=== PATIENT | female | born 1960 | race Caucasian/White ===

== ENCOUNTER 2020-07-31 10:00 | Outpatient (CLI) | payer OTHER, SELFPAY ==
--- NOTE | 2020-07-31 11:30 | NEURO_ITS ---
Impression: # Complains of right lower extremity numbness below the knee. # Normal nerve conduction study including F-waves. # Normal needle/EMG exam. # Clinical correlation recommended. Nerve Conduction Studies Anti Sensory Summary Table Stim Site NR Peak (ms) P-T Amp (?V) Site1 Site2 Delta-P (ms) Dist (cm) Yandel (m/s) Right Sup Fibular Anti Sensory (Ant Lat Mall) 14 cm 3.3 12.2 14 cm Ant Lat Mall 3.3 16.0 48 Right Sural Anti Sensory (Lat Mall) Calf 4.1 19.5 Calf Lat Mall 4.1 17.0 41 Motor Summary Table Stim Site NR Onset (ms) O-P Amp (mV) Site1 Site2 Delta-0 (ms) Dist (cm) Yandel (m/s) Right Peroneal Motor (Vastus Med) Ankle 4.2 3.6 Popit Ankle 7.1 37.0 52 Popit 11.3 3.8 Right Tibial Motor (Abd Mike Brev) Ankle 4.1 9.1 Knee Ankle 8.4 42.0 50 Knee 12.5 4.0 F Wave Studies NR F-Lat (ms) L-R F-Lat (ms) Right Peroneal (Mrkrs) (EDB) 46.68 Right Tibial (Mrkrs) (Abd Hallucis) 47.35 EMG Side Muscle Nerve Root Ins Act Fibs Amp Dur Recrt Comment Right AntTibialis Dp Br Fibular L4-5 Nml Nml Nml Nml Nml Right Gastroc Tibial S1-2 Nml Nml Nml Nml Nml Right Fibularis Long Sup Br Fibular L5-S1 Nml Nml Nml Nml Nml Right Flex Dig Long Tibial L5-S2 Nml Nml Nml Nml Nml Right Ext Dig Brev Dp Br Fibular L5, S1 Nml Nml Nml Nml Nml MTDD
== END 2020-07-31 10:01 | disposition home or self-care (01) ==
LOC: ANHNEURO 10:02
PROVIDERS: PCP Internal Medicine
DX: R20.2 Paresthesia of skin (principal)
CPT/HCPCS: 95886; 95908

== ENCOUNTER 2023-09-16 08:05 | Outpatient (CLI) | payer OTHER, SELFPAY ==
--- NOTE | ~2023-09-16 | MM_ITS ---
EXAMINATION: MM screening desiree BI w kwame HISTORY: Screening TECHNIQUE: Craniocaudal and mediolateral oblique 3-D tomosynthesis images were obtained and synthetic 2-D images were generated. CAD analysis was submitted and interpreted. COMPARISON: No prior mammogram is available for comparison at this institution. BREAST PARENCHYMAL COMPOSITION: The breasts are heterogeneously dense, which may obscure small masses . FINDINGS: There are nodular asymmetries in the upper outer quadrant of the left breast. No mammograph ic evidence for malignancy in the right breast. IMPRESSION: 1. Nodular asymmetries of the left breast. 2. Additional mammographic views and possible breast ultrasound are recommended. BI-RADS Category 0: Incomplete: Needs additional imaging evaluation. Reviewed, dictated and finalized at location A. RAL STERILIZATION TECHNICIAN IMPRESSION: 1. Nodular asymmetries of the left breast. 2. Additional mammographic views and possible breast ultrasound are recommended . BI-RADS Category 0: Incomplete: Needs additional imaging evaluation.
== END 2023-09-16 08:06 | disposition home or self-care (01) ==
LOC: ANHIMG 08:10
PROVIDERS: PCP Internal Medicine; Visit Provider Internal Medicine
DX: Z12.31 Encounter for screening mammogram for malignant neoplasm of breast (principal); R92.8 Other abnormal and inconclusive findings on diagnostic imaging of breast; M81.0 Age-related osteoporosis without current pathological fracture
CPT/HCPCS: 77063; 77067

== ENCOUNTER 2023-10-20 10:11 | Outpatient (CLI) | payer OTHER, SELFPAY ==
--- NOTE | ~2023-10-20 | MMUS_ITS ---
EXAMINATION: MM diagnostic desiree LT w kwame, US breast LT complete HISTORY: Nodular asymmetries of left breast reported on September 16, 2023 screening mammogram examinat ion TECHNIQUE: Additional 3-D tomosynthesis images of the left breast were performed and synthetic 2-D im ages were generated. CAD analysis was submitted and interpreted. High resolution complete left breast ultrasound examination including all 4 quadrants and subareolar area was performed. COMPARISON: September 16, 2023 and July 24, 2019 bilateral screening mammogram examinations FINDINGS: MAMMOGRAPHIC FINDINGS: No suspicious mammographic mass lesion, architectural distortion, malignant calcification, skin thick ening or retraction is detected. ULTRASOUND: Calcified microhematoma is noted in the subareolar area. No suspicious mass or shadowing of the left breast is detected. IMPRESSION: 1. No evidence of malignancy 2. Routine annual mammographic screening is recommended. BI-RADS Category 1: Negative Reviewed, dictated and finalized at location A. ING MACHINE OPERATOR ELECTRO GAS IMPRESSION: 1. No evidence of malignancy 2. Routine annual mammographic screening is recommended. BI-RADS Category 1: Negative
== END 2023-10-20 10:12 | disposition home or self-care (01) ==
PROVIDERS: PCP Internal Medicine; Visit Provider Internal Medicine
DX: R92.8 Other abnormal and inconclusive findings on diagnostic imaging of breast (principal)
CPT/HCPCS: 76641; 77061; 77065; G0279

== ENCOUNTER 2024-07-24 00:26 | Day surgery (SDC) | payer OTHER, SELFPAY ==
[2024-07-09 14:40] VITALS: BMI 24.8
[2024-07-24 07:49] VITALS: BP 150/79; PULSE 97; RESP 18; TEMP 36.1; O2SAT 100; BMI 24.5
[2024-07-24] MEDS: LACTATED RINGERS 1,000 ML 150 ML IV CONT (07:52)
--- NOTE | 2024-07-24 08:07 | WPDANESEPPF ---
Anes - Initial Pre Proc Eval Procedure: Operation Date: 07/24/24 08:30 Proposed Procedures p Esophagogastroduodenoscopy - Syed Rosario MD Date/Time: 07/24/24 08:07 Surgeon: Syed Rosario MD Pre Op Diagnosis: GERD Patient Data Age: 64 Gender: F Height: 1.6 m Weight: 62.9 kg Last Vital Signs Temp 36.1 C L 07/24/24 07:49 Pulse 97 07/24/24 07:49 Resp 18 07/24/24 07:49 BP 150/79 H 07/24/24 07:49 Pulse Ox 100 07/24/24 07:49 O2 Del Method Room Air 07/24/24 07:49 Allergies Allergy/AdvReac Type Severity Reaction Status Date / Time Penicillins Allergy Swelling Verified 07/24/24 07:47 Home Medications ?Medication ?Instructions ?Recorded ?Confirmed ?Type esomeprazole magnesium 40 mg 40 mg PO DAILY 07/09/24 07/24/24 History capsule,delayed release rosuvastatin 10 mg tablet 10 mg PO DAILY 07/09/24 07/24/24 History spironolactone 100 mg tablet 100 mg PO DAILY 07/09/24 07/24/24 History Patient hx anesthesia problems: none Family hx anesthesia problems: none Results Review: All pre-operative results and documents have been reviewed as part of the pre-operative evaluation. [facility] Social History Social History Living arrangements: with family Spiritual care concerns: No Anes - Eval Final PreProcedure Day of Procedure 07/24/24 08:07 Patient weight: normal Heart: regular rate and rhythm Lungs: clear to auscultation Airway: Mallampati scale class II Neurological: alert and oriented Last oral intake: >/= 8 hours ASA classification: II Emergent: no Anesthetic plan: proceed Anesthesia type and monitoring: general GIVS and standard monitoring Results Review: All pre-operative results and documents have been reviewed as part of the pre-operative evaluation. Informed Consent: The patient's anesthetic plan and its attendant risks and benefits were discussed with the patient/family/POA. Questions were solicited and answers provided to the satisfaction of the patient/family/POA.
--- NOTE | 2024-07-24 08:09 | PM.HPGS ---
History of Present Illness History of Present Illness Consent: Risks, benefits, and alternatives have been discussed and questions answered. Patient agrees to proceed with procedure. Chief complaint: GERD Narrative: Janki Harley is a 64 year old female here for first egd, h/o gerd on nexium daily for 10 years, also clearing her throat with breakthrough gerd at bedtime Review of Systems Review of Systems: All systems reviewed & are unremarkable except as noted in HPI and below PMFSH Past Medical History Medical History (Updated 07/24/24 @ 08:10 by Syed Rosario MD) Throat clearing GERD (gastroesophageal reflux disease) Social History Social History Living arrangements: with family Spiritual care concerns: No Meds Home Medications and Allergies Home Medications ?Medication ?Instructions ?Recorded ?Confirmed ?Type esomeprazole magnesium 40 mg 40 mg PO DAILY 07/09/24 07/24/24 History capsule,delayed release rosuvastatin 10 mg tablet 10 mg PO DAILY 07/09/24 07/24/24 History spironolactone 100 mg tablet 100 mg PO DAILY 07/09/24 07/24/24 History Allergies Allergy/AdvReac Type Severity Reaction Status Date / Time Penicillins Allergy Swelling Verified 07/24/24 07:47 Vital Signs Vital Signs - 24 hr 07/24/24 07:49 Temperature 97 F L Pulse Rate 97 Respiratory Rate 18 Blood Pressure 150/79 H Pulse Oximetry 100 Oxygen Delivery Room Air Exam Const: General: comfortable and no acute distress HENMT: Face/Nose/Sinus: Normal nares present Eyes: General: appearance normal, both eyes and all related structures Neck: Neck: no JVD Resp: Auscultation: clear to auscultation bilaterally Cardio: Rate: regular rate Rhythm: regular rhythm GI: Inspection: non-distended GI Palp: Yes Soft to palpation Skin: General skin exam: normal color Neuro: General: gait normal Speech: normal speech Extrem: General: normal to inspection Psych: Mental Status: mental status grossly normal Assessment and Plan Assessment and plan (1) GERD (gastroesophageal reflux disease): Code(s): K21.9 - Gastro-esophageal reflux disease without esophagitis Status: Acute Assessment and Plan: egd with bx on nexium (2) Throat clearing: Code(s): R09.89 - Other specified symptoms and signs involving the circulatory and respiratory systems Status: Acute
[2024-07-24 08:19] VITALS: BP 116/66; PULSE 87; RESP 17; O2SAT 100
[2024-07-24 08:29] VITALS: BP 101/63; PULSE 84; RESP 20; O2SAT 97
[2024-07-24 08:39] VITALS: BP 122/72; PULSE 78; RESP 18; O2SAT 99
== END 2024-07-24 08:52 | disposition home or self-care (01) ==
PROVIDERS: PCP Internal Medicine; Visit Provider Internal Medicine Gastroenterology
PROC: 0DJ08ZZ Inspection of Upper Intestinal Tract, Via Natural or Artificial Opening Endoscopic (ICD-10-PCS; CPT 43235; principal; 2024-07-24 08:30)
DX: K21.9 Gastro-esophageal reflux disease without esophagitis (principal); R09.89 Other specified symptoms and signs involving the circulatory and respiratory systems; K44.9 Diaphragmatic hernia without obstruction or gangrene
CPT/HCPCS: 43239; 88305; J2704; J7120

== ENCOUNTER 2024-08-22 10:48 | Outpatient (CLI) | payer OTHER, SELFPAY ==
--- NOTE | ~2024-08-22 | XR_ITS ---
XR chest 2V Ordering provider: Cyril Sellers, History: 64 years Female with . COUGH x 3 wks, l/g temp . Comparison: None. FINDINGS: MEDIASTINUM: The cardiac silhouette is not enlarged. LUNGS: No infiltrates, effusions or pneumothorax. OTHER: No free air under the diaphragm. Degenerative changes of the spine. IMPRESSION: No acute cardiopulmonary pathology. Reviewed, dictated and finalized at location A. ESS TIER
== END 2024-08-22 10:49 | disposition home or self-care (01) ==
PROVIDERS: PCP Internal Medicine; Visit Provider Internal Medicine
DX: R50.9 Fever, unspecified (principal)
CPT/HCPCS: 71046

== ENCOUNTER 2025-01-16 09:46 | Outpatient (CLI) | payer OTHER, SELFPAY ==
--- NOTE | ~2025-01-16 | MM_ITS ---
EXAMINATION: MM screening [facility] BI w kwame HISTORY: Screening TECHNIQUE: Craniocaudal and mediolateral oblique 3-D tomosynthesis images were obtained and synthetic 2-D images were generated. CAD analysis was submitted and interpreted. COMPARISON: 09/16/2023 and 07/24/2019 BREAST PARENCHYMAL COMPOSITION: The breasts are heterogeneously dense, which may obscure small masses . FINDINGS: There is no evidence of suspicious mass, calcification, or architectural distortion to sug gest malignancy in either breast. There has been no suspicious interval change. IMPRESSION: 1. No mammographic evidence of malignancy. 2. Recommend routine screening mammography in one year. BI-RADS Category 1: Negative Reviewed, dictated and finalized at location B.
--- NOTE | ~2025-01-16 | DEXA_ITS ---
Bone Density Report Name: FABRICIO MCCLELLAN Age: 65 Sex: Female Ethnicity: White Date of : 1960 Indication: postmenopausal; screening for osteoporosis; Referring Provider: MORGAN, EDITA Pierce Study: Bone densitometry was performed. Exam Date: January 16, 2025 Accession number: [id number] Bone Density: Region BMD T-score Z-score Classification AP Spine(L1-L4) 0.945 -0.9 0.7 Normal Femoral Neck (Left) 0.575 -2.5 -1.0 Osteoporosis Total Hip (Left) 0.862 -0.7 0.5 Normal Femoral Neck (Right) 0.601 -2.2 -0.8 Osteopenia Total Hip (Right) 0.851 -0.7 0.4 Normal Total Hip Mean 0.856 -0.7 0.5 Normal World Health Organization criteria for BMD impression classify patients as: Normal (T-score at or above -1.0), Osteopenia (T-score between -1.0 and -2.5), or Osteoporosis (T-score at or below -2.5). 10-year Fracture Risk: FRAX not reported because: Some T-score for Spine Total or Hip Total or Femoral Neck at or below -2.5 Clinical Information Provided by Patient: Has used the following medications: Vitamin D Patient maximum height was 63.0 Menopause Age: 52 Does not regularly consume dairy products Drinks caffeinated beverages Onset of menses at age 15 Number of children 2 Impression: The patient has osteoporosis, based on the Left Femoral Neck T-score. Discussion: INCREASED RISK OF FRACTURE. BONE DENSITY IS UNDESIRABLY LOW AT ONE OR MORE SKELETAL SITES, CONSISTENT WITH POSTMENOPAUSAL OSTEOPOROSIS. This patient's lowest T-score meets the World Health Organization's (WHO) criteria for osteoporosis at one or more sites (T-score -2.5 or below). In untreated patients, the risk of osteoporotic fracture increases approximately two-fold for each 1.0 SD decrease in T-score. Low bone density is not the only risk factor for fracture; also consider factors such as patient's age, frailty or poor health, risk of falling, risk of injury, previous osteoporotic fracture, family history of osteoporosis, cigarette smoking, low body weight, etc. Not everyone with low bone mineral density has osteoporosis; osteomalacia and other metabolic bone disorders should also be considered. Patients who have osteoporosis should be evaluated for specific diseases and conditions (secondary causes) that may cause or contribute to bone loss. The [place] [employer]ocrinologists (AACE) and National Osteoporosis Foundation (NOF) recommend pharmacologic intervention for all postmenopausal women whose T-score is in this range. The patient should follow a healthful lifestyle (good nutrition with adequate calcium and vitamin D, and appropriate weight-bearing exercise). Follow-Up: Consider a repeat BMD and Vertebral Fracture Assessment (VFA) exam in 2 years or sooner if medically necessary, to reassess this patient's status. Reported by: SUNSHINE on 01/16/2025 10:35:00 AM. Reviewed, dictated and finalized at location A.
--- OUTSIDE RECORDS SUMMARY | 2025-01-16 10:02 | XMS_ITS | Data Portability ---
Author Organization [facility], Main Office Address [address] [place] [address] Assessment No assessment recorded. Plan of Treatment Reminders Order Date Submit Date Provider Last Modified By Organization Details Last Modified Time Details Appointments None recorded. Lab lipid panel, serum 2024 025 [email or web address] [facility], [address] , [place], [address], 5 09:52:13 CMP, serum or plasma 2024 025 [email or web address] [facility], [address] [facility], [place], [address], 5 09:52:13 T4, free, serum 2024 025 [email or web address] [facility], [address] , [place], [address], 5 09:52:13 TSH, serum or plasma 2024 025 [email or web address] [facility], [address] [facility], [place], [address], 5 09:52:14 vitamin D, 25-hydroxy, total, serum 2022 023 [email or web address] [facility], [address] [place], [address], 3 13:22:38 lipid panel, serum 2022 023 [email or web address] [facility], [address] [place], [address], 3 13:22:38 CMP, serum or plasma 2022 023 [email or web address] [facility], [address] [place], [address], 3 13:22:38 magnesium, serum or plasma 2022 023 [email or web address] [facility], [address] [place], [address], 3 13:22:37 vitamin B12, serum 2022 023 [facility], [address] [place], [address], 3 13:22:38 CBC w/ auto diff 2022 023 [email or web address] [facility], [address] [place], [address], 3 13:22:38 Referral None recorded. Procedures None recorded. Surgeries None recorded. Imaging None recorded. Medication Orders Zithromax Z-Isiah 250 mg tablet [address]/Pharmacy #[id number], [address] [facility], [place], [address], 5 11:01:32 benzonatate 200 mg capsule [address]/Pharmacy #[id number], [address] , [place], [address], 5 11:01:35 Medrol (Isiah) 4 mg tablets in a dose pack [address]/Pharmacy #[id number], [address] , [place], [address], 5 11:01:41 trazodone 50 mg tablet 2023 024 [email or web address] [id number], [address], [place], [address], 11:59:21 Patient TargetsNo targets recorded. Patient Instructions Encounter Date Encounter Id Patient Instructions Last Modified By Organization Details Last Modified Time 03/03/2023 [id number] Follow-up for go od clinically stable. No interval complaints of any new problems. His knee need of a mammogram as well as bone density scan. Will check blood work consisting of CBC, CMP, lipid, magnesium level, B12 level and vitamin-D level. Continue on current Rx follow-up in one year Cologuard Bone density scan Mammogram Not available 03/03/2023 11:01:01 04/05/2024 [id number] Hyperlipidemia, GERD, insomnia. Plan to continue on current Rx will start on the rosuvastatin 10 mg once daily. Will give a trial of some trazodone 50 mg HS for sleep and see if there is any improvement. Continue current Rx recheck back in six months. Next Appointment: 6 Months Approximate Date: 10/02/2024 Portions of the record may have been created with voice recognition software. Occasional wrong-word or s ound-a-like substitutions may have occurred due to the inherent limitations of voice recognition software. Read the chart carefully and recognize, using context, where substitutions have occurred. [email or web address] Not available 04/05/2024 10:35:18 09/04/2024 [id number] Bronchitis, hyperlipidemia and GERD all clinically stable. We will give a trial of Z-Isiah, Tessalon Perles and a Medrol Dosepak. Have the patient report back in the next 2-3 days to see if there is any improvement. Will continue on current Rx already has a follow-up appointment in September. Keep Appointment: Louann 10 04 2024 09:50 AM Chapis Portions of the record may have been created with voice recognition software. Occasional wrong-word or s ound-a-like substitutions may have occurred due to the inherent limitations of voice recognition software. Read the chart carefully and recognize, using context, where substitutions have occurred. Created: Cyril Sellers M.D. 09.04.2024 11:11 AM [email or web address] Not available 09/04/2024 12:11:15 10/16/2024 [id number] Follow-up hyperlipidemia, GERD as well as menopausal osteoporosis. Will check a bone density scan, mammogram and Cologuard test. Also needs a lipid panel. He is being restarted back on rosuvastatin. Otherwise is clinically stable. Will follow-up six months Additional Orders - Directives - Recommendations 1. Screening mammogram 2. Bone density scan for postmenopausal osteoporosis 3. Cologuard 4. recheck her lipid panel in approximately six weeks is starting back on the rosuvastatin Portions of record are template driven. When necessary additional context will be provided. Additionally some portions have been created with voice recognition software. Occasional wrong-word or s ound-a-like substitutions may have occurred due to the inherent limitations of voice recognition software. Read the chart carefully and recognize, using context, where substitutions may have occurred. Created: Cyril Sellers M.D. 10.16.2024 10:15 AM [email or web address] Not available 10/16/2024 11:15:33 Reason for Referral None Reported. Results Created Date Observation Date Name Description Value Unit Range Abnormal Flag Note LastModifiedBy Organization Detail LastModifiedTime 03/02/20 24 03/02/2024 COLOG UARD cologuard result Cancel led - Order d not applic able Not Available [facility] (Cologuard Orders Only) [address], [place], [address], 03/02/2024 10:45:04 03/26/20 24 03/27/2024 LIPID PANEL , STAND EDI cholesterol, total 254 mg/dL <200 high Not Available [facility] [address] [place], [address], 03/27/2024 06:22:36 03/26/20 24 03/27/2024 LIPID PANEL , STAND EDI HDL cholesterol 64 mg/dL > or = 50 normal Not Available [facility] [address] [place], [address], 03/27/2024 06:22:36 03/26/20 24 03/27/2024 LIPID PANEL , STAND EDI triglyceride s 97 mg/dL <150 normal Not Available [facility] [address] [place], [address], 03/27/2024 06:22:36 03/26/20 24 03/27/2024 LIPID PANEL , STAND EDI LDL-choleste rol 168 mg/dL _(lo c) high Refer ence range : <100 Nahum able range <100 mg/dL for prima ry preve ntion ; <70 mg/dL for patie nts with CHD or diabe tic patie nts with > or = 2 CHD risk facto rs. LDL-C is now calcu lated using the Yulissa n-Hop kins calcu sarah n, which is a valid ated novel pinkyo ashanti ramirez accur acy than the Fried jose maria equat ion in the estim ation of LDL-C . Yulissa mckay SS et al. MARIBEL. 2013; 310(1 9): 2061- 2068 (http ://ed ucati on.FaceBuzz osmaniIMT ([employer]). [employer]f aq/FA Q164) Not Available [facility] [address] [place], [address], 03/27/2024 06:22:36 03/26/20 24 03/27/2024 LIPID PANEL , STAND EDI chol/HDLC ratio 4.0 (calc ) <5.0 normal Not Available [facility] [address] [place], [address], 03/27/2024 06:22:36 03/26/20 24 03/27/2024 LIPID PANEL , STAND EDI non HDL cholesterol 190 mg/dL _(lo c) <130 high For patie nts with diabe arely plus 1 major ASCVD risk facto r, treat ing to a non-H DL-C goal of <100 mg/dL (LDL- C of <70 mg/dL ) is consi dered a thera peuti c optio n. Not Available [facility] [address] [place], [address], 03/27/2024 06:22:36 03/26/20 24 03/27/2024 MAGNE SIUM magnesium 2.1 mg/dL 1.5-2. 5 normal Not Available [address], [address], 03/27/2024 06:22:37 03/26/20 24 03/27/2024 COMPR EHENS RUSSEL METAB OLIC PANEL glucose 88 mg/dL 65-99 normal Fasti ng refer ence inter josesito Not Available [address], [address], 03/27/2024 06:22:37 03/26/20 24 03/27/2024 COMPR EHENS RUSSEL METAB OLIC PANEL urea nitrogen (BUN) 14 mg/dL 7-25 normal Not Available [address], [address], 03/27/2024 06:22:37 03/26/20 24 03/27/2024 COMPR EHENS RUSSEL METAB OLIC PANEL creatinine 0.78 mg/dL 0.50-1 .05 normal Not Available [address], [address], 03/27/2024 06:22:37 03/26/20 24 03/27/2024 COMPR EHENS RUSSEL METAB OLIC PANEL eGFR 86 mL/mi n/1.7 3m2 > or = 60 normal Not Available [address], [address], 03/27/2024 06:22:37 03/26/20 24 03/27/2024 COMPR EHENS RUSSEL METAB OLIC PANEL BUN/creatini ne ratio SEE NOTE: (calc ) 6-22 Not Repor lauren: BUN and Creat inine are withi n refer ence range . Not Available [address], [address], 03/27/2024 06:22:37 03/26/20 24 03/27/2024 COMPR EHENS RUSSEL METAB OLIC PANEL sodium 139 mmol/ L 135-14 6 normal Not Available [address], [address], 03/27/2024 06:22:37 03/26/20 24 03/27/2024 COMPR EHENS RUSSEL METAB OLIC PANEL potassium 4.6 mmol/ L 3.5-5. 3 normal Not Available [address], [address], 03/27/2024 06:22:37 03/26/20 24 03/27/2024 COMPR EHENS RUSSEL METAB OLIC PANEL chloride 104 mmol/ L 98-110 normal Not Available [address], [address], 03/27/2024 06:22:37 03/26/20 24 03/27/2024 COMPR EHENS RUSSEL METAB OLIC PANEL carbon dioxide 28 mmol/ L 20-32 normal Not Available [address], [address], 03/27/2024 06:22:37 03/26/20 24 03/27/2024 COMPR EHENS RUSSEL METAB OLIC PANEL calcium 9.1 mg/dL 8.6-10 .4 normal Not Available [address], [address], 03/27/2024 06:22:37 03/26/20 24 03/27/2024 COMPR EHENS RUSSEL METAB OLIC PANEL protein, total 6.8 g/dL 6.1-8. 1 normal Not Available [address], [address], 03/27/2024 06:22:37 03/26/20 24 03/27/2024 COMPR EHENS RUSSEL METAB OLIC PANEL albumin 4.1 g/dL 3.6-5. 1 normal Not Available [address], [address], 03/27/2024 06:22:37 03/26/20 24 03/27/2024 COMPR EHENS RUSSEL METAB OLIC PANEL globulin 2.7 g/dL_ (calc ) 1.9-3. 7 normal Not Available [address], [address], 03/27/2024 06:22:37 03/26/20 24 03/27/2024 COMPR EHENS RUSSEL METAB OLIC PANEL albumin/glob ulin ratio 1.5 (calc ) 1.0-2. 5 normal Not Available [address], [address], 03/27/2024 06:22:37 03/26/20 24 03/27/2024 COMPR EHENS RUSSEL METAB OLIC PANEL bilirubin, total 0.3 mg/dL 0.2-1. 2 normal Not Available [address], [address], 03/27/2024 06:22:37 03/26/20 24 03/27/2024 COMPR EHENS RUSSEL METAB OLIC PANEL alkaline phosphatase 82 U/L 37-153 normal Not Available [address], [address], 03/27/2024 06:22:37 03/26/20 24 03/27/2024 COMPR EHENS RUSSEL METAB OLIC PANEL AST 26 U/L 10-35 normal Not Available [address], [address], 03/27/2024 06:22:37 03/26/20 24 03/27/2024 COMPR EHENS RUSSEL METAB OLIC PANEL ALT 37 U/L 6-29 high Not Available [address], [address], 03/27/2024 06:22:37 03/26/20 24 03/27/2024 CBC (INCL UDES DIFF/ PLT) white blood cell count 7.5 thous and/u L 3.8-10 .8 normal Not Available [address], [address], 03/27/2024 06:22:37 03/26/20 24 03/27/2024 CBC (INCL UDES DIFF/ PLT) red blood cell count 4.19 abril on/uL 3.80-5 .10 normal Not Available [address], [address], 03/27/2024 06:22:37 03/26/20 24 03/27/2024 CBC (INCL UDES DIFF/ PLT) hemoglobin 12.5 g/dL 11.7-1 5.5 normal Not Available [address], [address], 03/27/2024 06:22:37 03/26/20 24 03/27/2024 CBC (INCL UDES DIFF/ PLT) hematocrit 38.8 % 35.0-4 5.0 normal Not Available [address], [address], 03/27/2024 06:22:37 03/26/20 24 03/27/2024 CBC (INCL UDES DIFF/ PLT) MCV 92.6 fL 80.0-1 00.0 normal Not Available [address], [address], 03/27/2024 06:22:37 03/26/20 24 03/27/2024 CBC (INCL UDES DIFF/ PLT) MCH 29.8 pg 27.0-3 3.0 normal Not Available [facility] [address], [address], 03/27/2024 06:22:37 03/26/20 24 03/27/2024 CBC (INCL UDES DIFF/ PLT) MCHC 32.2 g/dL 32.0-3 6.0 normal Not Available [facility] [address] [place], [address], 03/27/2024 06:22:37 03/26/20 24 03/27/2024 CBC (INCL UDES DIFF/ PLT) RDW 12.5 % 11.0-1 5.0 normal Not Available [address], [address], 03/27/2024 06:22:37 03/26/20 24 03/27/2024 CBC (INCL UDES DIFF/ PLT) platelet count 288 thous and/u L 140-40 0 normal Not Available [address], [address], 03/27/2024 06:22:37 03/26/20 24 03/27/2024 CBC (INCL UDES DIFF/ PLT) MPV 11.0 fL 7.5-12 .5 normal Not Available [address], [address], 03/27/2024 06:22:37 03/26/20 24 03/27/2024 CBC (INCL UDES DIFF/ PLT) absolute neutrophils 5168 cells /uL 1500-7 800 normal Not Available [address], [address], 03/27/2024 06:22:37 03/26/20 24 03/27/2024 CBC (INCL UDES DIFF/ PLT) absolute lymphocytes 1253 cells /uL 850-39 00 normal Not Available [address], [address], 03/27/2024 06:22:37 03/26/20 24 03/27/2024 CBC (INCL UDES DIFF/ PLT) absolute monocytes 750 cells /uL 200-95 0 normal Not Available [address], [address], 03/27/2024 06:22:37 03/26/20 24 03/27/2024 CBC (INCL UDES DIFF/ PLT) absolute eosinophils 278 cells /uL 15-500 normal Not Available [address], [address], 03/27/2024 06:22:37 03/26/20 24 03/27/2024 CBC (INCL UDES DIFF/ PLT) absolute basophils 53 cells /uL 0-200 normal Not Available [address], [address], 03/27/2024 06:22:37 03/26/20 24 03/27/2024 CBC (INCL UDES DIFF/ PLT) neutrophils 68.9 % normal Not Available [address], [address], 03/27/2024 06:22:37 03/26/20 24 03/27/2024 CBC (INCL UDES DIFF/ PLT) lymphocytes 16.7 % normal Not Available [address], [address], 03/27/2024 06:22:37 03/26/20 24 03/27/2024 CBC (INCL UDES DIFF/ PLT) monocytes 10.0 % normal Not Available [address], [address], 03/27/2024 06:22:37 03/26/20 24 03/27/2024 CBC (INCL UDES DIFF/ PLT) eosinophils 3.7 % normal Not Available [address], [address], 03/27/2024 06:22:37 03/26/20 24 03/27/2024 CBC (INCL UDES DIFF/ PLT) basophils 0.7 % normal Not Available [address], [address], 03/27/2024 06:22:37 03/26/20 24 03/27/2024 VITAM IN B12 vitamin B12 457 pg/mL 200-11 00 normal Not Available [address] [place] [address] [place], [address], 03/27/2024 06:22:38 03/26/20 24 03/27/2024 T4, FREE T4, free 1.1 NG/dL 0.8-1. 8 normal Not Available [facility] [address] [address] [place], [address], 03/27/2024 06:22:38 03/26/20 24 03/27/2024 TSH TSH 1.65 mIU/L 0.40-4 .50 normal Not Available [facility] [address] [address] [place], [address], 03/27/2024 06:22:39 03/26/20 24 03/27/2024 VITAM IN D,25- OH,TO HETAL,I A vitamin D,25-oh,tota l,ia 33 NG/mL 30-100 normal Vitam in D Statu s 25-OH Vitam in D: Defic iency : <20 ng/mL Insuf ficie ncy: 20 - 29 ng/mL Optim al: > or = 30 ng/mL For 25-OH Vitam in D testi ng on patie nts on D2-rojas pplem entat ion and patie nts for whom quant itati on of D2 and D3 fract ions is requi red, the [facility](TM ) 25-OH VIT D, (D2,D 3), LC/MS /MS is recom suma d: order code 30861 (dinesh ents >2yrs ). See Note 1 Note 1 For addit ional infor feng muñoz refer to http: //karen grimes ics.c om/fa q/FAQ 199 (This link is being provi ded for infor ady deng/ manuel dean purpo ses only. ) Not Available [facility] [address] [place] [address] [place], [address], 03/27/2024 06:22:39 08/22/1908/25/2024 COMPR EHENS RUSSEL METAB OLIC PANEL glucose 91 mg/dL 65-99 normal Fasti ng refer ence inter josesito Not Available [address], [address], 08/25/2024 20:59:11 08/22/19 25 08/25/2024 COMPR EHENS RUSSEL METAB OLIC PANEL urea nitrogen (BUN) 13 mg/dL 7-25 normal Not Available [address], [address], 08/25/2024 20:59:11 08/22/19 25 08/25/2024 COMPR EHENS RUSSEL METAB OLIC PANEL creatinine 0.82 mg/dL 0.50-1 .05 normal Not Available [address], [address], 08/25/2024 20:59:11 08/22/19 25 08/25/2024 COMPR EHENS RUSSEL METAB OLIC PANEL eGFR 81 mL/mi n/1.7 3m2 > or = 60 normal Not Available [address], [address], 08/25/2024 20:59:11 08/22/19 25 08/25/2024 COMPR EHENS RUSSEL METAB OLIC PANEL BUN/creatini ne ratio SEE NOTE: (calc ) 6-22 Not Repor lauren: BUN and Creat inine are withi n refer ence range . Not Available [address], [address], 08/25/2024 20:59:11 08/22/19 25 08/25/2024 COMPR EHENS RUSSEL METAB OLIC PANEL sodium 137 mmol/ L 135-14 6 normal Not Available [address], [address], 08/25/2024 20:59:11 08/22/19 25 08/25/2024 COMPR EHENS RUSSEL METAB OLIC PANEL potassium 4.0 mmol/ L 3.5-5. 3 normal Not Available [address], [address], 08/25/2024 20:59:11 08/22/19 25 08/25/2024 COMPR EHENS RUSSEL METAB OLIC PANEL chloride 100 mmol/ L 98-110 normal Not Available [address], [address], 08/25/2024 20:59:11 08/22/19 25 08/25/2024 COMPR EHENS RUSSEL METAB OLIC PANEL carbon dioxide 28 mmol/ L 20-32 normal Not Available [address], [address], 08/25/2024 20:59:11 08/22/19 25 08/25/2024 COMPR EHENS RUSSEL METAB OLIC PANEL calcium 9.2 mg/dL 8.6-10 .4 normal Not Available [address], [address], 08/25/2024 20:59:11 08/22/19 25 08/25/2024 COMPR EHENS RUSSEL METAB OLIC PANEL protein, total 7.4 g/dL 6.1-8. 1 normal Not Available [address], [address], 08/25/2024 20:59:11 08/22/19 25 08/25/2024 COMPR EHENS RUSSEL METAB OLIC PANEL albumin 4.2 g/dL 3.6-5. 1 normal Not Available [address], [address], 08/25/2024 20:59:11 08/22/19 25 08/25/2024 COMPR EHENS RUSSEL METAB OLIC PANEL globulin 3.2 g/dL_ (calc ) 1.9-3. 7 normal Not Available [address], [address], 08/25/2024 20:59:11 08/22/19 25 08/25/2024 COMPR EHENS RUSSEL METAB OLIC PANEL albumin/glob ulin ratio 1.3 (calc ) 1.0-2. 5 normal Not Available [address], [address], 08/25/2024 20:59:11 08/22/19 25 08/25/2024 COMPR EHENS RUSSEL METAB OLIC PANEL bilirubin, total 0.3 mg/dL 0.2-1. 2 normal Not Available [address], [address], 08/25/2024 20:59:11 08/22/19 25 08/25/2024 COMPR EHENS RUSSEL METAB OLIC PANEL alkaline phosphatase 100 U/L 37-153 normal Not Available [address], [address], 08/25/2024 20:59:11 08/22/19 25 08/25/2024 COMPR EHENS RUSSEL METAB OLIC PANEL AST 20 U/L 10-35 normal Not Available [address], [address], 08/25/2024 20:59:11 08/22/19 25 08/25/2024 COMPR EHENS RUSSEL METAB OLIC PANEL ALT 24 U/L 6-29 normal Not Available [address], [address], 08/25/2024 20:59:11 08/22/19 25 08/25/2024 CBC (INCL UDES DIFF/ PLT) white blood cell count 10.8 thous and/u L 3.8-10 .8 normal Not Available [address], [address], 08/25/2024 20:59:14 08/22/19 25 08/25/2024 CBC (INCL UDES DIFF/ PLT) red blood cell count 4.12 abril on/uL 3.80-5 .10 normal Not Available [facility] [address], [address], 08/25/2024 20:59:14 08/22/19 25 08/25/2024 CBC (INCL UDES DIFF/ PLT) hemoglobin 13.1 g/dL 11.7-1 5.5 normal Not Available [facility] [address], [address], 08/25/2024 20:59:14 08/22/19 25 08/25/2024 CBC (INCL UDES DIFF/ PLT) hematocrit 38.4 % 35.0-4 5.0 normal Not Available [facility] [address], [address], 08/25/2024 20:59:14 08/22/19 25 08/25/2024 CBC (INCL UDES DIFF/ PLT) MCV 93.2 fL 80.0-1 00.0 normal Not Available [facility] [address], [address], 08/25/2024 20:59:14 08/22/19 25 08/25/2024 CBC (INCL UDES DIFF/ PLT) MCH 31.8 pg 27.0-3 3.0 normal Not Available [facility] [address], [address], 08/25/2024 20:59:14 08/22/19 25 08/25/2024 CBC (INCL UDES DIFF/ PLT) MCHC 34.1 g/dL 32.0-3 6.0 normal For adult s, a sligh t decre ase in the calcu lated MCHC value (in the range of 30 to 32 g/dL) is most likel y not clini meli signi franny t; ivette er, it shoul d be inter prete d with cauti on in corre latio n with other red cell jaquelin eters and the patie nt's clini lo condi tion. Not Available [facility] [address] [address], [place], [address], 08/25/2024 20:59:14 08/22/19 25 08/25/2024 CBC (INCL UDES DIFF/ PLT) RDW 11.8 % 11.0-1 5.0 normal Not Available [address], [address], 08/25/2024 20:59:14 08/22/19 25 08/25/2024 CBC (INCL UDES DIFF/ PLT) platelet count 348 thous and/u L 140-40 0 normal Not Available [facility] [address], [address], 08/25/2024 20:59:14 08/22/19 25 08/25/2024 CBC (INCL UDES DIFF/ PLT) MPV 10.7 fL 7.5-12 .5 normal Not Available [address], [address], 08/25/2024 20:59:14 08/22/19 25 08/25/2024 CBC (INCL UDES DIFF/ PLT) absolute neutrophils 8078 cells /uL 1500-7 800 high Not Available [address], [address], 08/25/2024 20:59:14 08/22/19 25 08/25/2024 CBC (INCL UDES DIFF/ PLT) absolute lymphocytes 1253 cells /uL 850-39 00 normal Not Available [facility] [address], [address], 08/25/2024 20:59:14 08/22/19 25 08/25/2024 CBC (INCL UDES DIFF/ PLT) absolute monocytes 1188 cells /uL 200-95 0 high Not Available [facility] [address], [address], 08/25/2024 20:59:14 08/22/19 25 08/25/2024 CBC (INCL UDES DIFF/ PLT) absolute eosinophils 227 cells /uL 15-500 normal Not Available [address], [address], 08/25/2024 20:59:14 08/22/19 25 08/25/2024 CBC (INCL UDES DIFF/ PLT) absolute basophils 54 cells /uL 0-200 normal Not Available [facility] [address], [address], 08/25/2024 20:59:14 08/22/19 25 08/25/2024 CBC (INCL UDES DIFF/ PLT) neutrophils 74.8 % normal Not Available [facility] [address], [address], 08/25/2024 20:59:14 08/22/19 25 08/25/2024 CBC (INCL UDES DIFF/ PLT) lymphocytes 11.6 % normal Not Available [facility] [address], [address], 08/25/2024 20:59:14 08/22/19 25 08/25/2024 CBC (INCL UDES DIFF/ PLT) monocytes 11.0 % normal Not Available [facility] [address], [address], 08/25/2024 20:59:14 08/22/19 25 08/25/2024 CBC (INCL UDES DIFF/ PLT) eosinophils 2.1 % normal Not Available [facility] [address], [address], 08/25/2024 20:59:14 08/22/19 25 08/25/2024 CBC (INCL UDES DIFF/ PLT) basophils 0.5 % normal Not Available [facility] [address], [address], 08/25/2024 20:59:14 08/22/19 25 08/25/2024 URINA LYSIS , COMPL ETE W/RFL CULTU RE (REFL ) color YELLOW yellow normal Not Available [address], [address], 08/25/2024 20:59:15 08/22/19 25 08/25/2024 URINA LYSIS , COMPL ETE W/RFL CULTU RE (REFL ) appearance CLEAR clear normal Not Available [address], [address], 08/25/2024 20:59:15 08/22/19 25 08/25/2024 URINA LYSIS , COMPL ETE W/RFL CULTU RE (REFL ) specific gravity 1.017 1.001- 1.035 normal Not Available [address], [address], 08/25/2024 20:59:15 08/22/19 25 08/25/2024 URINA LYSIS , COMPL ETE W/RFL CULTU RE (REFL ) pH 6.0 5.0-8. 0 normal Not Available [address], [address], 08/25/2024 20:59:15 08/22/19 25 08/25/2024 URINA LYSIS , COMPL ETE W/RFL CULTU RE (REFL ) glucose NEGATI VE negati ve normal Not Available [address], [address], 08/25/2024 20:59:15 08/22/19 25 08/25/2024 URINA LYSIS , COMPL ETE W/RFL CULTU RE (REFL ) bilirubin NEGATI VE negati ve normal Not Available [address], [address], 08/25/2024 20:59:15 08/22/19 25 08/25/2024 URINA LYSIS , COMPL ETE W/RFL CULTU RE (REFL ) ketones NEGATI VE negati ve normal Not Available [address], [address], 08/25/2024 20:59:15 08/22/19 25 08/25/2024 URINA LYSIS , COMPL ETE W/RFL CULTU RE (REFL ) occult blood TRACE negati ve abnormal Not Available [address], [address], 08/25/2024 20:59:15 08/22/19 25 08/25/2024 URINA LYSIS , COMPL ETE W/RFL CULTU RE (REFL ) protein NEGATI VE negati ve normal Not Available [address], [address], 08/25/2024 20:59:15 08/22/19 25 08/25/2024 URINA LYSIS , COMPL ETE W/RFL CULTU RE (REFL ) nitrite NEGATI VE negati ve normal Not Available [address], [id number], 08/25/2024 20:59:15 08/22/19 25 08/25/2024 URINA LYSIS , COMPL ETE W/RFL CULTU RE (REFL ) leukocyte esterase NEGATI VE negati ve normal Not Available [address], [address], 08/25/2024 20:59:15 08/22/19 25 08/25/2024 URINA LYSIS , COMPL ETE W/RFL CULTU RE (REFL ) WBC NONE SEEN /hpf < or = 5 normal Not Available [address], [address], 08/25/2024 20:59:15 08/22/19 25 08/25/2024 URINA LYSIS , COMPL ETE W/RFL CULTU RE (REFL ) RBC NONE SEEN /hpf < or = 2 normal Not Available [facility] [address], [id number], 08/25/2024 20:59:15 08/22/19 25 08/25/2024 URINA LYSIS , COMPL ETE W/RFL CULTU RE (REFL ) squamous epithelial cells NONE SEEN /hpf < or = 5 normal Not Available [address], [id number], 08/25/2024 20:59:15 08/22/19 25 08/25/2024 URINA LYSIS , COMPL ETE W/RFL CULTU RE (REFL ) bacteria NONE SEEN /hpf none seen normal Not Available [address], [address], 08/25/2024 20:59:15 08/22/19 25 08/25/2024 URINA LYSIS , COMPL ETE W/RFL CULTU RE (REFL ) hyaline cast NONE SEEN /lpf none seen normal Not Available [address], [id number], 08/25/2024 20:59:15 08/22/19 25 08/25/2024 URINA LYSIS , COMPL ETE W/RFL CULTU RE (REFL ) note This urine was heather zed for the prese nce of WBC, RBC, bacte lawanda, casts , and other forme d eleme nts. Only those eleme nts seen were repor lauren. Not Available [address], [address], 08/25/2024 20:59:15 08/22/19 25 08/25/2024 REFLE XIVE URINE CULTU RE reflexive urine culture NO CULTU RE INDIC ATED Not Available [address], [address], 08/25/2024 20:59:16 08/22/19 25 08/25/2024 PROCA LCITO TRACI procalcitoni n <0.10 NG/mL <0.10 Inter preta tion Guide lines Diagn osis of syste sal bacte rial infec tion/ sepsi s <0.50 ng/mL : Low risk for sepsi s: local bacte rial infec tion possi ble >=0.5 0 to <2.00 ng/mL : Sepsi s is possi ble; other condi tions possi ble >=2.0 0 to <10.0 0 ng/mL : Sepsi s likel y >10.0 0 ng/mL : Sever e bacte rial sepsi s or septi c shock proba ble Diagn osis of lower respi rator y tract infec tions : <0.10 ng/mL : Bacte rial infec tion very unlik ronda >=0.1 0 to <0.25 ng/mL : Bacte rial infec tion unlik ronda >=0.2 5 to <0.50 ng/mL : Bacte rial infec tion likel y >=0.5 0 ng/mL : Bacte rial infec tion very likel y Proca lcito traci level s shoul d be evalu ated in tyrone xt of all labor atory findi ngs and the total clini lo statu s of the patie nt. For addit ional infor feng muñoz e refer to http: //[facility] des mckay.que stdia gnost ics.c om/fa q/FAQ 46 (This link is being provi ded for infor ady nal/e ducat ional purpo ses only. ) Not Available [address] [address] [place], [address], 08/25/2024 20:59:17 10/30/19 25 10/29/2024 COLOG UARD cologuard result reportable NEGATI VE negati ve normal NEGAT RUSSEL TEST RESUL T. A negat russel Colog uard resul t indic ates a low likel ihood that a color ectal cance r (CRC) or advan marta adeno ma (octavia omato us polyp s with more advan marta pre-m align ant featu res) is prese nt. The chanc e that a perso n with a negat russel Colog uard test has a color ectal cance r is less than 1 in 1500 (nega tive predi ctive value >99.9 %) or has an advan marta adeno ma is less than 5.3% (nega tive predi ctive value 94.7% ). These data are based on a prosp ectiv e cross -sect ional study of 10,00 0 indiv idual s at [facility] risk for color ectal cance r who were scree tariq with both Colog uard and colon oscop y. (Pari Pierce et al, N Engl J Med 2014; 370(1 4):12 86-12 97) The angelina l value (refe rence range ) for this assay is negat russel. COLOG UARD RE-SC REENI NG RECOM MENDA TION: Perio dic color ectal cance r scree rito is an impor tant part of preve ntive healt hcare for asymp tomat ic indiv idual s at [place] risk for color ectal cance r. Follo wing a negat russel Colog uard resul t, the Ameri can Cance r Socie ty and U.S. Multi -Soci ety Task Force scree rito guide lines recom mend a Colog uard re-sc reeni ng inter josesito of 3 years . Refer ences : Ameri can Cance r Socie ty Guide line for Color ectal Cance r Scree rito: https ://dorothy w.can cer.o rg/ca ncer/ colon -rect al-ca ncer/ detec tion- diagn osis- stagi ng/ac s-rec ommen datio ns.ht ml.; Santos LANGFORD, Oh burrell CR, Basia ta JK, Color ectal Cance r Scree rito: Recom menda tions for Physi cians and Patie nts from the U.S. Multi -Soci ety Task Force on Color ectal Cance r Scree rito , Giovana escalanteog y 2017; 112:1 016-1 030. TEST DESCR IPTIO N: [place] site algor ithmi c heather sis of stool DNA-b iomar kers with hemog lobin immun oassa y. Quant itati ve value s of indiv idual bioma rkers are not repor table and are not assoc iated with indiv idual bioma rker resul t refer ence range s. Colog uard is inten ded for color ectal cance r scree rito of adult s of eithe r sex, 45 years or older , who are at [facility] for color ectal cance r (CRC) . Colog uard has been appro sonja for use by the U.S. FDA. The perfo rmanc e of Colog uard was estab lishe d in a cross secti onal study of [facility] adult s aged 50-84 . Colog uard perfo rmanc e in patie nts ages 45 to 49 years was estim ated by sub-g roup heather sis of near- age group s. Colon oscop ies perfo rmed for a posit russel resul t may find as the most clini meli signi fican t lesio n: color ectal cance r [4.0% ], advan marta adeno ma (incl uding sessi le chelo lauren polyp s great er than or equal to 1cm diame ter) [20%] or non- advan marta adeno ma [31%] ; or no color ectal neopl candis [45%] . These estim ates are deriv ed from a prosp ectiv e cross -sect ional scree rito study of 10,00 0 indiv idual s at [facility] risk for color ectal cance r who were scree tariq with both Colog uard and colon oscop y. (Pari Pierce et al, N Engl J Med 2014; 370(1 4):12 86-12 97.) Colog uard may produ ce a false negat russel or false posit russel resul t (no color ectal cance r or preca ncero us polyp prese nt at colon oscop y follo w up). A negat russel Colog uard test resul t does not guara ntee the absen ce of CRC or advan marta adeno ma (pre- cance r). The curre nt Colog uard scree rito inter josesito is every 3 years . (Amer ican Cance r Socie ty and U.S. Multi -Soci ety Task Force ). Colog uard perfo rmanc e data in a 10,00 0 patie nt pivot al study using colon oscop y as the refer ence metho d can be acces sed at the follo wing locat ion: www.e xactl abs.c om/re myrna . Addit ional descr iptio n of the Colog uard test proce ss, warni ngs and preca ution s can be found at www.c nasreen edi.c om. Not Available [facility] (Cologuard Orders Only) [address], [place], [address], 11/02/2024 12:31:56 09/16/19 24 09/16/2023 MAMMO , scree rito, digit al, bilat eral No observ ation record ed. [address] [facility], [place], [address], 09/16/2023 10:39:17 09/16/19 24 09/16/2023 MAMMO , scree rito, digit al, bilat eral No observ ation record ed. [address], [place], [address], 09/16/2023 14:09:01 09/22/19 24 09/16/2023 MAMMO , scree rito, digit al, bilat eral No observ ation record ed. [place] [id number] Not Available 2023 13:39:51 10/20/19 24 10/20/2023 MAMMO , scree rito, digit al, bilat eral No observ ation record ed. [address], [place], [address], 10/20/2023 15:37:09 10/21/19 24 10/20/2023 MAMMO , diagn ostic , digit al, unila teral No observ ation record ed. [address] [facility] [address], [place], [address], 10/21/2023 10:28:49 08/22/19 25 08/22/2024 XR, chest , 2 view No observ ation record ed. [email or web address] [facility] [address], [place], [address], 08/22/2024 14:30:50 Result Notes None recorded. Problems Name Problem SNOMED Code Status Onset Date Resolution Date Notes Provider Name and Address Organization Details Recorded Time Cellulitis 646990320 Active Not Available [facility] 3 17:10:30 Gastroesophag eal reflux disease 979774189 Active 2017 Not Available [facility] 3 17:10:30 Olecranon bursitis 454364239 Active Not Available [facility] 3 17:10:30 Vitamin D deficiency 45800959 Active 2022 Not Available [facility] 3 17:10:30 Hemorrhoids 87385611 Active 2022 Not Available [facility] 3 17:10:30 Mammography abnormal 463587145 Active 2023 ROXANNE [place], [place] - [facility] 4 15:52:04 Hypercholeste rolemia 50129804 Active 2023 Cyril Sellers MD [address], [place], [address] , [facility] 4 11:55:12 Insomnia 110951602 Active 2023 Cyril Sellers MD [address], [place], [address] , [facility] 4 10:34:25 Screening for malignant neoplasm of colon Active 2023 Elena hernandez, [place] - [facility] 4 11:35:02 Cough 26987126 Active 2024 Cyril Sellers MD [address], [place], [address] , [facility] - [facility] 5 10:49:53 Acute urinary tract infection 514695623 Active 2024 Rubina Cano CMA null, [facility] 5 11:11:32 Acute bronchitis 81543442 Active 2024 Cyril Sellers MD [address] [facility], [facility] [address], [place], [address] , [facility] [employer] [facility] 5 12:06:14 Menopausal osteoporosis 79738281 Active 2024 Cyril Sellers MD [address] [facility], [facility] [address], [place], [address] , [facility] [employer] [facility] 5 11:09:55 Senile osteoporosis 61344661 Active 2024 Elena Tucker hernandez, [facility] [employer] [facility] 5 11:21:45 Problem Notes None recorded. Medical Equipment None Reported. Allergies Allergen ID Allergen Name Allergen Category Reaction Reaction Severity Criticality Documentation Date Start Date Code Code System Note Provider Name and Address Organization Details Recorded Time 03634 Product containin g penicilli n (product) medicatio n Not available Not available Not available 10/13/2022 97519 8001 SNOMED Not Available [facility] 3 12:59:24 Medications Name Sig Start Date Stop Date Status Note LastModified by Organization Details LastModified Time hydrocodone 7.5 mg-ibuprofe n 200 mg tablet 06/01 completed Not Available Not Available Not Available doxycycline hyclate 100 mg capsule Take 1 capsule every day by oral route. 04/05 completed Not Available Not Available Not Available clindamycin HCl 300 mg capsule Take 1 capsule every 6 hours by oral route. 04/05 completed Not Available Not Available Not Available trazodone 50 mg tablet TAKE 1 TABLET BY MOUTH AT BEDTIME NEEDED 09/04 completed Not Available Not Available Not Available azithromyci n 250 mg tablet TAKE 2 TABLETS BY MOUTH TODAY, THEN TAKE 1 TABLET DAILY FOR 4 DAYS DIRECTED 10/16 completed Not Available Not Available Not Available benzonatate 200 mg capsule TAKE 1 CAPSULE BY MOUTH THREE TIMES A DAY 10/16 completed Not Available Not Available Not Available spironolact one 100 mg tablet TAKE 1 TABLET BY MOUTH EVERY DAY WITH BREAKFAST active Not Available Not Available No t Available sulfamethox azole 800 mg-trimetho prim 160 mg tablet 06/01 completed Not Available Not Available Not Available tramadol 50 mg tablet TAKE 1 TABLET 3 TIMES A DAY BY ORAL ROUTE NEEDED. active Not Available Not Available No t Available triamcinolo ne acetonide 0.1 % topical cream 06/01 completed Not Available Not Available Not Available erythromyci n 250 mg tablet 06/01 completed Not Available Not Available Not Available hydrocortis one 2.5 % topical cream with perineal applicator APPLY A THIN LAYER TO THE AFFECTED AREA(S) BY TOPICAL ROUTE 2-4 TIMESDAIL Y 04/05 completed Not Available Not Available Not Available clindamycin 1 % topical gel APPLY TWICE A DAY 06/01 completed Not Available Not Available Not Available Compazine 5 mg tablet Take 1 tablet 3 times a day by oral route for 4 days. 06/28 completed Not Available Not Available Not Available esomeprazol e magnesium 40 mg capsule,del ayed release TAKE 1 CAPSULE BY MOUTH EVERY DAY active Not Available Not Available No t Available Cheratussin AC 10 mg-100 mg/5 mL oral liquid Take 10 mL 3 times a day by oral route. 06/01 completed Not Available Not Available Not Available methylpredn isolone 4 mg tablets in a dose pack TAKE 6 TABLETS ON DAY 1 DIRECTED ON PACKAGE AND DECREASE BY 1 TAB EACH DAY FOR A TOTAL OF 6 DAYS 10/16 completed Not Available Not Available Not Available doxycycline hyclate 100 mg tablet Take 1 tablet every day by oral route. 04/05 completed Not Available Not Available Not Available rosuvastati n 10 mg tablet TAKE 1 TABLET BY MOUTH EVERY DAY 2024 active Not Available Not Available Not Avai lable Claritin 04/05 completed Not Available Not Available Not Available cholecalcif narendra (vitamin D3) 1,250 mcg (50,000 unit) capsule Take 1 capsule every week by oral route. 04/05 completed Not Available Not Available Not Available Vitals Date Recorded Body height Body mass index (BMI) Body weight Heart rate Body temperature Oxygen saturation Oxygen saturation in Arterial blood by Pulse oximetry Systolic blood pressure Diastolic blood pressure Provider Name and Address Organization Details Last Updated DateTime 5 160.02 cm 25.7 kg/m2 19042.8 9 g 117 /min 97 [degF] 94 % 94 % 118 mm[Hg] 70 mm[Hg] Ariane Alfredo [place] [employer] [facility] [employer] [facility] 5 11:58:55 Date Recorded Body height Body mass index (BMI) Body weight Heart rate Body temperature Oxygen saturation Oxygen saturation in Arterial blood by Pulse oximetry Systolic blood pressure Diastolic blood pressure Provider Name and Address Organization Details Last Updated DateTime 5 160.02 cm 26.2 kg/m2 28629.6 7 g 112 /min 97 [degF] 96 % 96 % 144 mm[Hg] 82 mm[Hg] Ariane Alfredo [employer] [facility] [employer] [facility] 5 11:01:20 Date Recorded Body weight Body temperature Heart rate Oxygen saturation Oxygen saturation in Arterial blood by Pulse oximetry Systolic blood pressure Diastolic blood pressure Provider Name and Address Organization Details Last Updated DateTime 3 57352.9 3 g 96.4 [degF] 92 /min 97 % 97 % 140 mm[Hg] 86 mm[Hg] Suha Greco MA [facility] [employer] [facility] 3 10:48:47 Date Recorded Body height Body mass index (BMI) Body weight Heart rate Body temperature Oxygen saturation Oxygen saturation in Arterial blood by Pulse oximetry Systolic blood pressure Diastolic blood pressure Provider Name and Address Organization Details Last Updated DateTime 4 160.02 cm 25.2 kg/m2 09074.1 2 g 98 /min 97.8 [degF] 98 % 98 % 142 mm[Hg] 84 mm[Hg] WALT Dominguez [facility] [employer] [facility] 4 10:22:00 Social History None recorded. Functional Status None recorded. Mental Status None recorded. Family History Nothing Reported Notes:Mother living 86 HTN F ather with CA bladder, prostate One half brother living in good health One sister at 62 from COPD and ETOH Medical History No medical history recorded. Gynecological HistoryNo gynecological history recorded. Obstetrics History GPAL:G 0 P 0 0 0 0 Past Encounters Encounter ID Performer Location Encounter Start Date Encounter Closed Date Diagnosis/Indication Diagnosis SNOMED-CT Code Diagnosis ICD10 Code Diagnosis Note [id number] Cyril Sellers MD [facility] [address] [facility] [address] [place] [address] 03/03/2023 10:41:08 03/03/2023 11:10:17 Gastroesophageal reflux disease 067242445 K21.9 Screening for cardiovascular system disease 331366594 Z13.6 Vitamin D deficiency 347 80664 E55.9 [id number] Cyril Sellers MD [facility] Internal Med [facility] [address] [facility] [place] [address] 04/05/2024 10:15:14 04/05/2024 10:41:57 Hypercholesterolemia 13046212 E78.00 Gastroesop hageal reflux disease 285403223 K21.9 Insomnia 800076948 G47.0 0 [id number] Cyril Sellers MD [facility] Primary Care [facility] [address] [facility] [address] [place] [address] 09/04/2024 11:34:10 09/04/2024 12:18:22 Gastroesophageal reflux disease 369209333 K21.9 Hypercholesterolemia 136 04404 E78.00 Acute bronchitis 2649351 2 J20.9 J20.0 J20.1 J20.2 J20.3 J20.4 J20.5 J20.6 J20.7 J20.8 [id number] Cyril Sellers MD [facility] Internal Med [facility] [address] [facility] [address] [place] [address] 10/16/2024 10:27:07 10/16/2024 11:25:35 Gastroesophageal reflux disease 129705091 K21.9 Hypercholesterolemia 136 73723 E78.00 Menopausal osteoporosis 17628590 M81.0 Health Concerns Section Related Observation LastModified by Organization Detai ls LastModified Time None Recorded Concern Status LastModified by Organization Details LastModified Time None Recorded Advance Directives Directive None Recorded Payers Encounter Date Sequence Insurance Name Policy Number Policy Galo Covered Member ID Galo Member ID Guarantor Name 03/03/2023 1 GARETH [id number] Janki Harley [id number] Janki Harley 04/05/2024 1 GARETH - EDEN Tan [employer] [facility] (O) [id number] Janki Harley [id number] Janki Harley 09/04/2024 1 GARETH Tan [facility] [place] (PPO[place] [id number] Janki Harley [id number] Janki Harley 10/16/2024 1 GARETH Tan [facility] [employer] [id number] Janki Harley [id number] Janki Harley Notes Date Note Type Note Provider Name and Address Organization Details Recorded Time 3 text/html Patient Name: Janki HarleyDate Of Service: February ( 03.03.2023 ): 1960 Age: 63 Vital Signs:Blood Pressure: Sitting Rt. Arm 140/86Pulse: Sitting 92 /min and RegularRespirations: 12Height 63 in or 1.6 mWeight 140 lb or 63.5 kgBMI 24.8Temperature: 96.4 F or 35.8 CPulse Oximetry: 97 % at rest on no oxygen Chief Complaint: Addressed in HPI Problems or conditions discussed in the HPI were the only ones reviewed during the encounter.Only social and family history addressed in the HPI were reviewed during this encounter. Attendant(s): None Constitutional and Systemic Symptoms: none Medication Reconciliation: from medication list. History of Present Illness #1. Hx of esophageal reflux currently stable. Hx of Complications: none The severity, duration and intensity of symptoms have improved. Frequency: most meals Treatment consists medications taken on intermittent basis. Current therapy includes Nexium. There has been no nausea, eructation, vomiting, hematemesis, dysphagia, velopharyngeal insufficiency and odynophagia. No change in he frequency or intensity of symptoms. Has had no melena. Has had no hematemesis. Discuss the possibility of trying to reduce the frequency of the use of any PPI inhibitors or H2 antagonist to see if symptoms can be controlled with last intensive therapyMedication List Reviewed and Reconciled 03/03/2023Nexium 20 MG (CAPSULE, DELAYED REL PELLETS - ORAL) One Daily PrnADRs List Reviewed 03/03/2023enicillin HivesSurgical HistoryLap Cholecystectomy, C-SectionPreventative Testing Confirmed by Our Efghrwn07/ ALBUMIN 4.8 G/DL12/05/2019 MAMMOGRAM 07/24/2020Social HistoryDoes not smokeDrinks sociallyWorks as RN in cardiac rehabFamily HistoryMother living 86 HTNFather living with CA bladder, prostateOne half brother living in good healthOne sister at 62 from COPD and ETOHMenarche 14 Menopause 52 A0 Cyril Sellers MD [address] [facility], [facility] [address], [place], [address], [facility] [employer] 03/03/2023 11:01:21 4 text/html Patient Name: Janki Marquez Of Service: March ( 04.05.2024 ): 1960 Age: 64 There has been approximately a 2 lb weight gain since 03/03/2023. This represents approximately a 1.4% change in weight. Weight change attributable to lifestyle changes. Vital Signs:Blood Pressure: Sitting Rt. Arm 142/84Pulse: Sitting 98 /min and RegularRespiratory Rate: 14Height 63 in or 1.6 mWeight 142 lb or 64.4 kgBMI 25.2Temperature: 97.8 F or 36.6 CPulse Oximetry: 98 % at rest on no oxygen Chief Complaint: Addressed in HPI Problems or conditions discussed in the HPI were the only ones reviewed during the encounter.Only social and family history addressed in the HPI were reviewed during this encounter. Attendant(s): NoneConstitutional and Systemic Symptoms:none Medication Reconciliation: from medication list. History of Present Illness #1. Type II Hypercholesterolaemia: Currently taking medication and tolerating well. No interval complaints of any muscle pain or arthralgia. No significant liver changes with medications. Last lipid panel: fair control. Therapy reviewed regarding treatment of cholesterol management and include diet and Rosuvastatin. #2. Hx of esophageal reflux currently stable. Hx of Complications: none The severity, duration and intensity of symptoms have improved. Frequency: most meals Treatment consists medications taken on a regular basis. Current therapy includes Nexium. There has been no nausea, eructation, vomiting, hematemesis, dysphagia and velopharyngeal insufficiency. No change in he frequency or intensity of symptoms. Has had no melena. Has had no . Discussed use of H2 antagonists and the possibility of trying to reduce the frequency of the use of any PPI inhibitors and try H2 antagonists to see if symptoms can be controlled with lease intensive therapy since a number of complications are associated with chronic prolonged use of PPI inhibitors. #3. Complaining both initial as well as terminal insomnia at night. Not bothered on a nightly basis. Will give a trial of some trazodone low-dose 50 mg HS on a p.r.n. Type basis. Has already tried some melatonin and also Tylenol PM. Have recommended that she stay away from the [facility]. Continue on current medications. Follow-up in six months: Active Medication ListNexium 20 MG (CAPSULE, DELAYED REL PELLETS - ORAL) One Daily PrnRosuvastatin 10 MG TABLET One DailySpironolactone 100 MG TABLET One Daily With Breakfast Adverse Drug Reactions ReviewedPenicillin Hives Surgical Qwywxyw3372-01 Lap Xxsbldywapajzyt8726-93 Preventative Testing( ) 03/26/2024 Albumin 4.1 G/DL N( ) 10/20/2023 Mammogram 10/19/2024 Social HistoryDoes not smokeDrinks sociallyWorks as RN in cardiac rehab Family HistoryMother living 86 HTNFather living with CA bladder, prostateOne half brother living in good healthOne sister at 62 from COPD and ETOHMenarche 14 Menopause 52 A0 Cyril Sellers MD [address] [address], [place], [address], [facility] [employer] 04/05/2024 10:35:26 5 text/html Patient Name: Janki Marquez Of Service: Tuesday ( 09.04.2024 ): 1960 Age: 64 There has been approximately a 3 lb weight gain since 04/05/2024. This represents approximately a 2.1% change in weight. Weight change attributable to lifestyle changes. Vital Signs:Blood Pressure: Sitting Rt. Arm 108/78Pulse: Sitting 110 /min and RegularRespiratory Rate: 16Height 63 in or 1.6 mWeight 145 lb or 65.8 kgBMI 25.7Temperature: 99 F or 37.2 CPulse Oximetry: 94 % at rest on no oxygen Chief Complaint: Addressed in HPI Problems or conditions discussed in the HPI were the only ones reviewed during the encounter.Only social and family history addressed in the HPI were reviewed during this encounter. Attendant(s): NoneConstitutional and Systemic Symptoms:none Medication Reconciliation: from medication list. History of Present Illness #1. Cough congestion nonproductive cough for the most part. Had some occasional wheezing with transient. Has been having a cough for about six weeks. Chest x-rays negative laboratory tests toe no evidence of any leukocytosis. Procalcitonin level was negative for any evidence of possible bacterial but can not rule out the possibility of some mild forms of acute bronchitis.: #2. Type II Hypercholesterolaemia: Currently taking medication and tolerating well. No interval complaints of any muscle pain or arthralgia. No significant liver changes with medications. Last lipid panel: no testing done recently. Therapy reviewed regarding treatment of cholesterol management and include Rosuvastatin. #3. Hx of esophageal reflux currently stable. Hx of Complications: none The severity, duration and intensity of symptoms have improved. Frequency: most meals Treatment consists medications taken on no regular basis. Current therapy includes no medication. There has been no nausea. No change in he frequency or intensity of symptoms. Has had no melena. Has had no . Discussed use of H2 antagonists and the possibility of trying to reduce the frequency of the use of any PPI inhibitors and try H2 antagonists to see if symptoms can be controlled with lease intensive therapy since a number of complications are associated with chronic prolonged use of PPI inhibitors. Active Medication ListNexium 20 MG (CAPSULE, DELAYED REL PELLETS - ORAL) One Daily PrnRosuvastatin 10 MG TABLET One DailySpironolactone 100 MG TABLET One Daily With Breakfast Adverse Drug Reactions ReviewedPenicillin Hives Surgical [id number] Lap [id number] Preventative Testing( ) 08/22/2024 Albumin 4.2 G/DL N( ) 07/24/2024 Upper Endoscopy 07/24/2050( ) 10/20/2023 Mammogram 10/19/2024 Social HistoryDoes not smokeDrinks sociallyWorks as RN in cardiac rehab Family HistoryMother living 86 HTNFather living with CA bladder, prostateOne half brother living in good healthOne sister at 62 from COPD and ETOHMenarche 14 Menopause 52 A0 TEST RESULT RANGE UNITSCBC (INCLUDES DIFF/PLT) Date: 08/22/2024WHITE BLOOD CELL COUNT 10.8 3.8-10.8 THOUSAND/ULHEMOGLOBIN 13.1 11.7-15.5 G/DLHEMATOCRIT 38.4 35.0-45.0 %PLATELET COUNT 348 140-400 THOUSAND/ULCOMPREHENSIVE METABOLIC PANEL Date: 08/22/2024SODIUM 137 135-146 MMOL/LPOTASSIUM 4.0 3.5-5.3 MMOL/LGLUCOSE 91 65-99 MG/DLUREA NITROGEN (BUN) 13 7-25 MG/DLCREATININE 0.82 0.50-1.05 MG/DLEGFR 81 > OR = 60 ML/MIN/1.74P1YKRTPPSQO, TOTAL 0.3 0.2-1.2 MG/DLALKALINE PHOSPHATASE 100 37-153 U/LAST 20 10-35 U/LALT 24 6-29 U/LPROCALCITONIN Date: 08/22/2024PROCALCITONIN <0.10 <0.10 NG/MLLIPID PANEL, STANDARD Date: 4CHOLESTEROL, TOTAL 254 <200 MG/DLHDL CHOLESTEROL 64 > OR = 50 MG/DLTRIGLYCERIDES 97 <150 MG/DLLDL-CHOLESTEROL 168 MG/DL (CALC) Cyril Sellers MD [address] [facility] [address], [place], [address], [facility] 09/04/2024 12:11:59 5 text/html Patient Name: Janki Marquez Of Service: Tuesday ( 10.16.2024 ): 1960 Age: 64 There has been approximately a 3 lb weight gain since 09/04/2024. This represents approximately a 2.1% change in weight. Weight change attributable to lifestyle changes. Vital Signs:Blood Pressure: Sitting Rt. Arm 144/82Pulse: Sitting 110 /min and RegularRespiratory Rate: 16Height 63 in or 1.6 mWeight 148 lb or 67.1 kgBMI 26.2Temperature: 97 F or 36.1 CPulse Oximetry: 97 % at rest on no oxygen Chief Complaint: Addressed in HPI Problems or conditions discussed in the HPI were the only ones reviewed during the encounter.Only social and family history addressed in the HPI were reviewed during this encounter. Attendant(s): NoneConstitutional and Systemic Symptoms:none Medication Reconciliation: from medication list. History of Present Illness #1. Type II Hypercholesterolaemia: Currently taking medication and tolerating well. No interval complaints of any muscle pain or arthralgia. No significant liver changes with medications. Last lipid panel: no testing done recently. Therapy reviewed regarding treatment of cholesterol management and include diet. #2. Hx of esophageal reflux currently stable. Hx of Complications: none The severity, duration and intensity of symptoms have improved. Frequency: most meals Treatment consists medications taken on a regular basis. Current therapy includes Nexium. There has been no nausea. No change in he frequency or intensity of symptoms. Has had no melena. Has had no . Discussed use of H2 antagonists and the possibility of trying to reduce the frequency of the use of any PPI inhibitors and try H2 antagonists to see if symptoms can be controlled with lease intensive therapy since a number of complications are associated with chronic prolonged use of PPI inhibitors. #3. These have additional bone density scans for postmenopausal osteoporosis. Is clinically doing well otherwise.: Active Medication ListNexium 20 MG (CAPSULE, DELAYED REL PELLETS - ORAL) One Daily PrnRosuvastatin 10 MG TABLET One DailySpironolactone 100 MG TABLET One Daily With Breakfast Adverse Drug Reactions ReviewedPenicillin Hives Surgical [id number] Lap [id number] Preventative Testing( ) 08/22/2024 Albumin 4.2 G/DL N( ) 07/24/2024 Upper Endoscopy 07/24/2050( ) 10/20/2023 Mammogram 10/19/2024 Social HistoryDoes not smokeDrinks sociallyWorks as RN in cardiac rehab Family HistoryMother living 86 HTNFather living with CA bladder, prostateOne half brother living in good healthOne sister at 62 from COPD and ETOHMenarche 14 Menopause 52 A0 Cyril Sellers MD [address] [facility], [facility] [address], [place], [address], [place] [facility] 10/16/2024 11:15:49 OBGyn Episode No OBEpisode recorded.
== END 2025-01-16 09:47 | disposition home or self-care (01) ==
LOC: ANHIMG 09:52
PROVIDERS: PCP Internal Medicine; Visit Provider Internal Medicine
DX: Z12.31 Encounter for screening mammogram for malignant neoplasm of breast (principal); M81.0 Age-related osteoporosis without current pathological fracture; M85.851 Other specified disorders of bone density and structure, right thigh
CPT/HCPCS: 77063; 77067; 77080